=== PATIENT | female | born 1990 | race Caucasian/White ===

== ENCOUNTER 2017-08-17 09:28 | Emergency (ER) | payer BC ==
[~2017-08-17] VITALS: Ht 172.7 cm; Wt 66.0 kg
[2017-08-17] MEDS ORDERED: ZPAK PO (10:01)
[2017-08-17] MEDS ORDERED: CHERATUSSIN PO (10:01)
[2017-08-17] MEDS ORDERED: OFLOXACIN0.3 % OS (10:03)
[2017-08-17 10:16] LABS: INFLUENZA A NONE DETECTED (NONE DETECT); INFLUENZA B NONE DETECTED (NONE DETECT)
[2017-08-17 10:39] VITALS: BP 122/72
== END 2017-08-17 10:25 | disposition home or self-care (01) | DRG 153 ==
LOC: ED 09:28
PROVIDERS: Family Medicine
DX: J06.9 Acute upper respiratory infection, unspecified (principal); H10.9 Unspecified conjunctivitis